=== PATIENT | male | born 1955 | race Caucasian/White ===

== ENCOUNTER → 2017-06-01 | Outpatient (CLI) | payer BC ==
[2014-02-13 13:29] VITALS: BP 128/80
[~2017-06-01] MED LIST: CARDI-OMEGA1000 MG PO; GOOD SENSE ASPI81 M1 PO; HYZAAR 25 MG-101 TAB PO; IBUPROFEN200 M1 PO; MULTI VITAMINS1 TAB PO; TOPROL XL50 MG PO
== END ==
LOC: CARDREHAB 07:06 → CARDLAB 12:04 → CARDREHAB 12:07
DX: I49.3 Ventricular premature depolarization (principal); R00.1 Bradycardia, unspecified
CPT/HCPCS: A9500